=== PATIENT | female | born 1960 | race Caucasian/White ===

== ENCOUNTER 2017-02-16 14:16 | Emergency (ER) | payer MEDICAID ==
[~2017-02-16] VITALS: Ht 175.3 cm; Wt 64.9 kg
[2017-02-16 15:33] VITALS: BP 172/90
[2017-02-16] MEDS ORDERED: HYDROcodone-ACET 10/325MG TAB PO ONE (15:45)
== END 2017-02-16 16:03 | disposition home or self-care (01) ==
LOC: ER 14:16
DX: M25.551 Pain in right hip (principal); F17.210 Nicotine dependence, cigarettes, uncomplicated; F31.9 Bipolar disorder, unspecified; Z76.0 Encounter for issue of repeat prescription; Z96.641 Presence of right artificial hip joint

== ENCOUNTER 2018-01-26 15:18 | Inpatient (IN) | payer MEDICAID ==
[~2018-01-26] VITALS: Ht 175.3 cm; Wt 63.1 kg
[2018-01-26 16:22] LABS: Basophils # (auto) 0 uL; Basophils % (auto) 0.6 % (0.0-2.0); Eosinophils # (auto) 0.1 uL; Eosinophils % (auto) 1.6 % (0.0-7.0); Hematocrit 43.8 % (36.0-46.0); Hemoglobin 14.9 g/dL (12.2-16.2); Lymphocytes # (auto) 2.1 uL; Lymphocytes % (auto) 28.8 % (10.0-50.0); Mean Corpuscular Hemoglobin 33.2 pg (28.0-32.0); Mean Corpuscular Hgb Conc. 34.1 g/dL (32.0-36.0); Mean Corpuscular Volume 97.5 fL (80.0-100.0); Monocytes # (auto) 0.6 uL; Monocytes % (auto) 7.9 % (0.0-12.0); Neutrophils # (auto) 4.4 uL; Neutrophils % (auto) 61.1 % (37.0-80.0); Nucleated Red Blood Cells % 0.2 %; Platelet Count (auto) 317 10^3/uL (140-450); Red Blood Cells 4.49 10^6/uL (4.0-5.20); Red Cell Distribution Width 13.8 % (11.8-14.3); White Blood Cell 7.2 10^3/uL (4.4-10.8)
[2018-01-26] MEDS ORDERED: SODIUM CHLORIDE 0.9% 500 ML IVB ONE (16:27)
[2018-01-26] MEDS ORDERED: ONDANSETRON HCL 4 MG/2 ML VIAL IV ONE ×2 (16:30→20:15)
[2018-01-26] MEDS ORDERED: SODIUM CHLORIDE 0.9% 1,000 ML IV ONE (16:30)
[2018-01-26 16:34] LABS: Alanine Aminotransferase 14 U/L (13-56); Albumin 3.9 g/dL (3.4-5.0); Anion Gap 6 (5-15); Aspartate Aminotransferase 14 U/L (15-37); BUN/Creatinine Ratio 14.5; Blood Urea Nitrogen 11 mg/dL (7-18); Calcium 8.9 mg/dL (8.5-10.1); Carbon Dioxide 29 mmol/L (21-32); Chloride 102 mmol/L (98-107); GFR African American 101 mL/min; GFR Non-African American 83 mL/min; Glucose 104 mg/dL (74-106); Magnesium 2.1 mg/dL (1.6-2.6); Potassium 4.5 mmol/L (3.5-5.1); Sodium 137 mmol/L (136-145)
[2018-01-26 16:39] LABS: Alkaline Phosphatase 86 U/L (45-117); Bilirubin, Total 0.2 mg/dL (0.2-1.0); Total Protein 7.8 g/dL (6.4-8.2)
[2018-01-26] MEDS ORDERED: cloNIDine HCL 0.1 MG TAB ONE (17:14)
[2018-01-26] MEDS ORDERED: cloNIDine HCL 0.1 MG TAB PO ONE (17:15)
[2018-01-26 18:24] LABS: Urine Bacteria NONE SEEN /hpf (None Seen); Urine Blood Negative /uL (Negative); Urine Mucus FEW (None Seen); Urine Specific Gravity 1.027 (1.001-1.035); Urine WBC 3 /hpf (0 - 5)
[2018-01-26] MEDS ORDERED: MORPHINE SULFATE 4 MG/ML SYR/VIAL IV ONE (20:15)
[2018-01-26] MEDS ORDERED: ACETAMINOPHEN 500 MG TAB PO PRN (22:15)
[2018-01-26] MEDS: SODIUM CHLORIDE 0.9% 1,000 ML IV SCH (22:23)
[2018-01-26] MEDS: GABAPENTIN 300 MG CAP PO SCH (22:28)
[2018-01-26] MEDS ORDERED: cefTRIAXone 1GM/10ml IVPUSH 10 ML IV ONE (22:30)
[2018-01-26] MEDS: ONDANSETRON HCL 4 MG/2 ML VIAL IV PRN (22:49)
[2018-01-26 23:50] VITALS: BP 164/104
[2018-01-27] MEDS: TEMAZEPAM 15 MG CAP PO PRN (00:19)
[2018-01-27] MEDS: MORPHINE SULFATE 4 MG/ML SYR/VIAL IV PRN ×2 (00:19→08:36)
[2018-01-27] MEDS: SODIUM CHLORIDE 0.9% 1,000 ML IV SCH (00:48)
[2018-01-27] MEDS ORDERED: DIVA500T53 PO (01:20)
[2018-01-27] MEDS ORDERED: HYDR-531 PO (01:20)
[2018-01-27] MEDS ORDERED: HYDR-4683 PO (01:20)
[2018-01-27] MEDS ORDERED: GABA-339 PO (01:20)
[2018-01-27] MEDS ORDERED: MORP1TAB12 PO (01:20)
[2018-01-27] MEDS ORDERED: LISI-646 PO (01:20)
[2018-01-27 05:00] VITALS: BP 104/69
[2018-01-27 05:25] LABS: Basophils # (auto) 0 uL; Basophils % (auto) 0.6 % (0.0-2.0); Eosinophils # (auto) 0.2 uL; Eosinophils % (auto) 2.9 % (0.0-7.0); Hematocrit 40.7 % (36.0-46.0); Hemoglobin 14.1 g/dL (12.2-16.2); Lymphocytes # (auto) 3.5 uL; Lymphocytes % (auto) 53.5 % (10.0-50.0); Mean Corpuscular Hemoglobin 33.5 pg (28.0-32.0); Mean Corpuscular Hgb Conc. 34.5 g/dL (32.0-36.0); Monocytes # (auto) 0.5 uL; Monocytes % (auto) 7.2 % (0.0-12.0); Neutrophils # (auto) 2.3 uL; Neutrophils % (auto) 35.8 % (37.0-80.0); Nucleated Red Blood Cells % 0.3 %; Platelet Count (auto) 237 10^3/uL (140-450); Red Cell Distribution Width 13.6 % (11.8-14.3); White Blood Cell 6.5 10^3/uL (4.4-10.8)
[2018-01-27] MEDS: GABAPENTIN 300 MG CAP PO SCH ×3 (05:30→22:30)
[2018-01-27 05:44] LABS: Potassium 3.4 mmol/L (3.5-5.1)
[2018-01-27 05:57] LABS: BUN/Creatinine Ratio 12.7; Calcium 8.5 mg/dL (8.5-10.1)
[2018-01-27 09:00] VITALS: BP 123/86
[2018-01-27] MEDS ORDERED: cefTRIAXone 1GM/10ml IVPUSH 10 ML IV SCH (09:00)
[2018-01-27] MEDS ORDERED: POTASSIUM EFFERVESENT TAB 25 MEQ PO ONE (10:00)
[2018-01-27] MEDS ORDERED: HCTZ 25 MG TAB PO SCH (10:00)
[2018-01-27] MEDS: LISINOPRIL 20 MG TAB PO SCH (10:00)
[2018-01-27] MEDS: PANTOPRAZOLE 40 MG/10 ML VIAL IV SCH ×2 (11:24→22:30)
[2018-01-27] MEDS: SOD CHL 0.45% WITH 20MEQ KCL 1,000 ML IV SCH (11:25)
[2018-01-27] MEDS: ONDANSETRON HCL 4 MG/2 ML VIAL IV PRN ×2 (12:50→21:02)
[2018-01-27] MEDS: HYDROcodone-ACET 10/325MG TAB PO PRN ×4 (12:51→21:02)
[2018-01-27 13:00] VITALS: BP 153/99
[2018-01-27 14:05] LABS: Prothrombin Time 10.7 sec (9.27-12.13)
[2018-01-27 16:43] VITALS: BP 153/99
[2018-01-27 22:00] VITALS: BP 139/82
[2018-01-28] MEDS: SOD CHL 0.45% WITH 20MEQ KCL 1,000 ML IV SCH ×2 (00:27→13:51)
[2018-01-28] MEDS: MORPHINE SULFATE 4 MG/ML SYR/VIAL IV PRN ×4 (00:32→20:21)
[2018-01-28 05:00] VITALS: BP 108/77
[2018-01-28] MEDS: GABAPENTIN 300 MG CAP PO SCH ×3 (05:42→21:36)
[2018-01-28 07:57] LABS: Hematocrit 44.1 % (36.0-46.0); Hemoglobin 14.4 g/dL (12.2-16.2); Mean Corpuscular Hemoglobin 32.6 pg (28.0-32.0); Mean Corpuscular Hgb Conc. 32.8 g/dL (32.0-36.0); Mean Corpuscular Volume 99.5 fL (80.0-100.0); Platelet Count (auto) 209 10^3/uL (140-450); Red Blood Cells 4.43 10^6/uL (4.0-5.20); Red Cell Distribution Width 14.2 % (11.8-14.3); White Blood Cell 6.8 10^3/uL (4.4-10.8)
[2018-01-28 08:00] LABS: Band Neutrophils % (manual) 0; Basophils % (manual) 0 (0.0-2.0); Blast Cells 0; Metamyelocytes % 0; Myelocytes % 0; Promyelocytes % 0; Reactive Lymphocytes 0
[2018-01-28 08:17] LABS: Calcium 8.2 mg/dL (8.5-10.1); Chloride 108 mmol/L (98-107); Potassium 4.2 mmol/L (3.5-5.1); Sodium 141 mmol/L (136-145)
[2018-01-28 08:20] LABS: Alanine Aminotransferase 12 U/L (13-56); Albumin 3.5 g/dL (3.4-5.0); Anion Gap 9 (5-15); Aspartate Aminotransferase 13 U/L (15-37); BUN/Creatinine Ratio 7.7; Blood Urea Nitrogen 5 mg/dL (7-18); Carbon Dioxide 24 mmol/L (21-32); GFR African American 121 mL/min; GFR Non-African American 100 mL/min; Glucose 60 mg/dL (74-106); Magnesium 2.2 mg/dL (1.6-2.6)
[2018-01-28 08:24] LABS: Alkaline Phosphatase 65 U/L (45-117); Bilirubin, Direct 0.1 mg/dL (0-0.2); Bilirubin, Total 0.3 mg/dL (0.2-1.0); Total Protein 6.8 g/dL (6.4-8.2)
[2018-01-28] MEDS ORDERED: LIDOCAINE VISCOUS 2% 15ML UD ONE (08:26)
[2018-01-28] MEDS ORDERED: SODIUM CHLORIDE LOCK 10 ML ONE (08:26)
[2018-01-28] MEDS ORDERED: diphenhdrAMINE HCL 50 MG/1 ML VL ONE (08:27)
[2018-01-28 08:30] LABS: Eosinophils % (manual) 1 (0-7); Lymphocytes % (manual) 66 (10.0-50.0); Monocytes % (manual) 5 (0-12)
[2018-01-28 08:53] VITALS: BP 145/85
[2018-01-28] MEDS: MIDAZOLAM HCL 5 MG/ML-1ML VIAL ONE ×2 (09:10→09:13)
[2018-01-28] MEDS: fentaNYL CITRATE 100 MCG/2 ML VL ONE ×2 (09:10→09:13)
[2018-01-28] MEDS: PANTOPRAZOLE 40 MG TAB PO SCH ×2 (10:40→21:36)
[2018-01-28] MEDS: LISINOPRIL 20 MG TAB PO SCH (10:40)
[2018-01-28 11:01] LABS: INR 0.93 (0.9-1.15)
[2018-01-28 12:00] VITALS: BP 145/94
[2018-01-28] MEDS: HYDROcodone-ACET 10/325MG TAB PO PRN (12:17)
[2018-01-28] MEDS: ONDANSETRON HCL 4 MG/2 ML VIAL IV PRN ×2 (15:22→20:21)
[2018-01-28 16:57] VITALS: BP 149/92
[2018-01-28 21:45] VITALS: BP 154/96
[2018-01-28] MEDS: TEMAZEPAM 15 MG CAP PO PRN (22:00)
[2018-01-29] MEDS: ONDANSETRON HCL 4 MG/2 ML VIAL IV PRN ×2 (00:40→04:49)
[2018-01-29] MEDS: MORPHINE SULFATE 4 MG/ML SYR/VIAL IV PRN ×3 (00:40→09:11)
[2018-01-29] MEDS: SOD CHL 0.45% WITH 20MEQ KCL 1,000 ML IV SCH (01:51)
[2018-01-29 04:40] VITALS: BP 152/100
[2018-01-29 05:42] LABS: Basophils # (auto) 0 uL; Basophils % (auto) 0.5 % (0.0-2.0); Eosinophils # (auto) 0.2 uL; Eosinophils % (auto) 2.4 % (0.0-7.0); Hematocrit 41.6 % (36.0-46.0); Lymphocytes # (auto) 3.5 uL; Lymphocytes % (auto) 39.6 % (10.0-50.0); Mean Corpuscular Hemoglobin 32.9 pg (28.0-32.0); Mean Corpuscular Hgb Conc. 33.6 g/dL (32.0-36.0); Mean Corpuscular Volume 97.7 fL (80.0-100.0); Monocytes # (auto) 0.6 uL; Monocytes % (auto) 6.9 % (0.0-12.0); Neutrophils # (auto) 4.5 uL; Neutrophils % (auto) 50.6 % (37.0-80.0); Nucleated Red Blood Cells % 0.1 %; Platelet Count (auto) 277 10^3/uL (140-450); Red Blood Cells 4.26 10^6/uL (4.0-5.20); Red Cell Distribution Width 13.6 % (11.8-14.3); White Blood Cell 8.9 10^3/uL (4.4-10.8)
[2018-01-29 06:00] LABS: Potassium 3.8 mmol/L (3.5-5.1)
[2018-01-29 06:09] LABS: BUN/Creatinine Ratio 7.7; Calcium 8.7 mg/dL (8.5-10.1)
[2018-01-29] MEDS: GABAPENTIN 300 MG CAP PO SCH (06:27)
[2018-01-29 09:00] VITALS: BP 134/94
[2018-01-29] MEDS: PANTOPRAZOLE 40 MG TAB PO SCH (09:12)
[2018-01-29] MEDS: LISINOPRIL 20 MG TAB PO SCH (09:13)
== END 2018-01-29 11:20 | disposition home or self-care (01) | DRG 241 ==
LOC: ER 15:24 → OVERFLOW 15:25 → WEST WING 23:15
PROVIDERS: ADMIT Nurse Practitioner Family; ATTEND Internal Medicine
PROC: 0DB68ZX Excision of Stomach, Via Natural or Artificial Opening Endoscopic, Diagnostic (ICD-10-PCS; principal; 2018-01-28 09:06)
DX: K29.70 Gastritis, unspecified, without bleeding (principal); E87.6 Hypokalemia; F32.9 Major depressive disorder, single episode, unspecified; I10 Essential (primary) hypertension; N39.0 Urinary tract infection, site not specified; F17.210 Nicotine dependence, cigarettes, uncomplicated; Z80.3 Family history of malignant neoplasm of breast; Z85.038 Personal history of other malignant neoplasm of large intestine; Z96.649 Presence of unspecified artificial hip joint; G89.29 Other chronic pain; M54.5 Low back pain
CPT/HCPCS: 36415; 43239; 71045; 74176; 80048; 80053; 80076; 81001; 82150; 83690; 83735; 84484; 85007; 85025; 85027; 85610; 86850; 86900; 86901; 93005; 96374; 96375; A6257; C9113; J0696; J2250; J2405

== ENCOUNTER 2022-06-26 23:58 | Emergency (ER) | payer MEDICAID ==
[~2022-06-26] VITALS: Ht 172.7 cm; Wt 72.7 kg
[~2022-06-26 23:58] MED LIST: DIVA500T2 PO; GABA-339 PO; HYDR-4833 PO; HYDR-531 PO; LISI20TA28 PO; MORP1TAB12 PO
[2022-06-27] MEDS ORDERED: ONDANSETRON ODT 4 MG TAB PO ONE (00:15)
[2022-06-27] MEDS ORDERED: HYDROmorphone HCL 2 MG/ML VL/or syr IM ONE (00:15)
[2022-06-27 00:45] LABS: Basophils # (auto) 0.2 10 ^3/uL (0-0.2); Basophils % (auto) 1.9 % (0.0-2.0); Eosinophils # (auto) 0.1 10 ^3/uL (0-0.8); Eosinophils % (auto) 0.7 % (0.0-7.0); Hematocrit 48.3 % (36.0-46.0); Hemoglobin 16.6 g/dL (12.2-16.2); Lymphocytes # (auto) 1.9 10 ^3/uL (0.4-5.4); Lymphocytes % (auto) 18.6 % (10.0-50.0); Mean Corpuscular Hgb Conc. 34.4 g/dL (32.0-36.0); Mean Corpuscular Volume 92.9 fL (80.0-100.0); Monocytes # (auto) 0.4 10 ^3/uL (0-1.3); Monocytes % (auto) 3.9 % (0.0-12.0); Neutrophils # (auto) 7.4 10 ^3/uL (1.6-8.6); Neutrophils % (auto) 74.9 % (37.0-80.0); Nucleated Red Blood Cells % 0.1 %; Red Cell Distribution Width 13.2 % (11.8-14.3); White Blood Cell 9.9 10^3/uL (4.4-10.8)
[2022-06-27 01:03] LABS: Albumin 4.4 g/dL (3.4-5.0); BUN/Creatinine Ratio 10.8; Bilirubin, Total 0.5 mg/dL (0.2-1.0); CRP High Sensitivity 0.17 mg/dL (< 0.3); Calcium 9.5 mg/dL (8.5-10.1)
[2022-06-27 02:52] LABS: Urine Bacteria NONE SEEN /hpf (None Seen); Urine Blood Negative /uL (Negative); Urine Hyaline Cast FEW /lpf (0 - 2); Urine Mucus FEW (None Seen); Urine Specific Gravity 1.041 (1.001-1.035); Urine WBC 15 /hpf (0 - 5)
[2022-06-27 04:52] VITALS: BP 153/109
== END 2022-06-27 06:38 | disposition home or self-care (01) ==
LOC: ER 23:58
DX: R10.32 Left lower quadrant pain (principal); R73.9 Hyperglycemia, unspecified; F32.9 Major depressive disorder, single episode, unspecified; I10 Essential (primary) hypertension; F17.210 Nicotine dependence, cigarettes, uncomplicated; Z79.899 Other long term (current) drug therapy
CPT/HCPCS: 36415; 74176; 80053; 81001; 83880; 85025; 86141; 96372; 99285; J1170; Q0162

== ENCOUNTER 2022-10-31 11:31 | Emergency (ER) | payer MEDICAID ==
[~2022-10-31] VITALS: Ht 175.3 cm; Wt 66.5 kg
[~2022-10-31 11:31] MED LIST changes: -DIVA500T2 PO; +DIVA500T3 PO; -LISI20TA28 PO; +LISI20TA56 PO
[2022-10-31 12:24] LABS: Basophils # (auto) 0.1 10 ^3/uL (0-0.2); Basophils % (auto) 1.1 % (0.0-2.0); Eosinophils # (auto) 0.3 10 ^3/uL (0-0.8); Eosinophils % (auto) 3.1 % (0.0-7.0); Hematocrit 47.7 % (36.0-46.0); Lymphocytes # (auto) 1.3 10 ^3/uL (0.4-5.4); Lymphocytes % (auto) 15.6 % (10.0-50.0); Mean Corpuscular Hemoglobin 31.6 pg (28.0-32.0); Mean Corpuscular Hgb Conc. 33.5 g/dL (32.0-36.0); Mean Corpuscular Volume 94.6 fL (80.0-100.0); Monocytes # (auto) 0.6 10 ^3/uL (0-1.3); Monocytes % (auto) 6.7 % (0.0-12.0); Neutrophils # (auto) 6.3 10 ^3/uL (1.6-8.6); Neutrophils % (auto) 73.5 % (37.0-80.0); Red Blood Cells 5.04 10^6/uL (4.0-5.20); Red Cell Distribution Width 13.9 % (11.8-14.3); White Blood Cell 8.5 10^3/uL (4.4-10.8)
[2022-10-31 12:58] LABS: Albumin 4.1 g/dL (3.4-5.0); Calcium 9.5 mg/dL (8.5-10.1); Magnesium 2.4 mg/dL (1.6-2.6); Potassium 4.3 mmol/L (3.5-5.1)
[2022-10-31 13:04] LABS: Bilirubin, Total 0.2 mg/dL (0.2-1.0); Total Protein 7.6 g/dL (6.4-8.2)
[2022-10-31 14:47] LABS: Urine Bacteria NONE SEEN /hpf (None Seen); Urine Blood Negative /uL (Negative); Urine Specific Gravity 1.028 (1.001-1.035); Urine WBC 1 /hpf (0 - 5)
[2022-10-31 17:37] VITALS: BP 142/67
== END 2022-10-31 17:44 | disposition home or self-care (01) ==
LOC: ER 11:31
DX: R10.12 Left upper quadrant pain (principal); F32.9 Major depressive disorder, single episode, unspecified; I10 Essential (primary) hypertension; F17.210 Nicotine dependence, cigarettes, uncomplicated; F15.90 Other stimulant use, unspecified, uncomplicated; Z79.1 Long term (current) use of non-steroidal anti-inflammatories (NSAID); Z98.890 Other specified postprocedural states; Z79.899 Other long term (current) drug therapy
CPT/HCPCS: 36415; 74176; 80053; 81001; 82150; 83690; 83735; 84484; 85025; 93005

== ENCOUNTER 2023-01-19 12:33 | Emergency (ER) | payer MEDICAID ==
[~2023-01-19] VITALS: Ht 175.3 cm; Wt 64.0 kg
[2023-01-19 13:33] LABS: Eosinophils # (auto) 0 10 ^3/uL (0-0.8); Eosinophils % (auto) 0.1 % (0.0-7.0); Hemoglobin 15.9 g/dL (12.2-16.2); Mean Corpuscular Volume 94.2 fL (80.0-100.0); Monocytes # (auto) 0.4 10 ^3/uL (0-1.3); Nucleated Red Blood Cells % 0.1 %
[2023-01-19 13:35] LABS: Basophils # (auto) 0.1 10 ^3/uL (0-0.2); Basophils % (auto) 0.6 % (0.0-2.0); Hematocrit 46.6 % (36.0-46.0); Lymphocytes # (auto) 1.5 10 ^3/uL (0.4-5.4); Lymphocytes % (auto) 15.7 % (10.0-50.0); Mean Corpuscular Hemoglobin 32.1 pg (28.0-32.0); Monocytes % (auto) 4.1 % (0.0-12.0); Neutrophils # (auto) 7.8 10 ^3/uL (1.6-8.6); Neutrophils % (auto) 79.5 % (37.0-80.0); Red Blood Cells 4.95 10^6/uL (4.0-5.20); Red Cell Distribution Width 13.5 % (11.8-14.3); White Blood Cell 9.8 10^3/uL (4.4-10.8)
[2023-01-19 13:42] LABS: Alanine Aminotransferase 19 U/L (7-40); Albumin 5.4 g/dL (3.2-4.8); Alkaline Phosphatase 117 U/L (46-116); Anion Gap 19 (5-15); Aspartate Aminotransferase 26 U/L (13-40); Bilirubin, Total 0.7 mg/dL (0.2-1.0); Blood Urea Nitrogen 33 mg/dL (9-23); Calcium 10.5 mg/dL (8.7-10.4); Carbon Dioxide 18 mmol/L (20-30); Chloride 103 mmol/L (98-107); Glucose 122 mg/dL (74-106); Lipase 39 U/L (12-53); Potassium 4.2 mmol/L (3.5-5.1); Sodium 140 mmol/L (136-145); Total Protein 8.2 g/dL (5.7-8.2)
[2023-01-19 13:44] LABS: INR 1.01 (0.9-1.15); Partial Thromboplastin Time 29.9 SEC (24.5-34.5); Prothrombin Time 10.6 sec (9.3-11.8)
[2023-01-19] MEDS ORDERED: ZOFR4T PO (13:58)
[2023-01-19] MEDS ORDERED: PANT40TA2 PO (13:58)
[2023-01-19 14:15] VITALS: BP 133/98; PULSE 102; RESP 18; TEMP 98.5; O2SAT 100
== END 2023-01-19 14:18 | disposition home or self-care (01) ==
LOC: ER 12:33
DX: F10.188 Alcohol abuse with other alcohol-induced disorder (principal); G89.29 Other chronic pain; R10.84 Generalized abdominal pain; R11.2 Nausea with vomiting, unspecified; I10 Essential (primary) hypertension; F17.210 Nicotine dependence, cigarettes, uncomplicated
CPT/HCPCS: 36415; 76705; 80053; 83690; 85025; 85610; 85730; 93005

== ENCOUNTER 2023-12-07 09:14 | Inpatient (IN) | payer MEDICAID ==
[~2023-12-07] VITALS: Ht 175.3 cm; Wt 64.0 kg
[~2023-12-07 09:14] MED LIST changes: +BUPR-239 PO; +CYCL-839 PO; +DIVA-91 PO; -DIVA500T3 PO; +DULO20CA PO; +HYDR-4795 PO; +LISI-285 PO; +OMEP1CAP70 PO; +PANT40TA2 PO; +SIMV20TA20 PO; +ZOFR4T PO
[2023-12-07 11:19] LABS: Basophils # (auto) 0.1 10 ^3/uL (0-0.2); Basophils % (auto) 0.4 % (0.0-2.0); Eosinophils # (auto) 0.1 10 ^3/uL (0-0.8); Eosinophils % (auto) 0.8 % (0.0-7.0); Hematocrit 50.3 % (36.0-46.0); Hemoglobin 16.6 g/dL (12.2-16.2); Lymphocytes # (auto) 1.4 10 ^3/uL (0.4-5.4); Lymphocytes % (auto) 11.3 % (10.0-50.0); Mean Corpuscular Volume 97.1 fL (80.0-100.0); Monocytes # (auto) 0.4 10 ^3/uL (0-1.3); Monocytes % (auto) 3.2 % (0.0-12.0); Neutrophils # (auto) 10.4 10 ^3/uL (1.6-8.6); Neutrophils % (auto) 84.3 % (37.0-80.0); Nucleated Red Blood Cells % 0.1 %; Platelet Count (auto) 361 10^3/uL (140-450); Red Blood Cells 5.19 10^6/uL (4.0-5.20); Red Cell Distribution Width 13.1 % (11.8-14.3); White Blood Cell 12.4 10^3/uL (4.4-10.8)
[2023-12-07 11:35] LABS: Alanine Aminotransferase 22 U/L (7-40); Alkaline Phosphatase 95 U/L (46-116); Anion Gap 0 (5-15); Aspartate Aminotransferase 26 U/L (13-40); BUN/Creatinine Ratio 19.6 (10.0-20.0); Blood Urea Nitrogen 18 mg/dL (9-23); Calcium 10.2 mg/dL (8.7-10.4); Carbon Dioxide 27 mmol/L (20-30); Chloride 109 mmol/L (98-107); Glucose 103 mg/dL (74-106); Potassium 4.4 mmol/L (3.5-5.1); Sodium 136 mmol/L (136-145)
[2023-12-07 11:36] LABS: Albumin 4.7 g/dL (3.2-4.8); Bilirubin, Total 0.7 mg/dL (0.2-1.0)
[2023-12-07] MEDS: IOHEXOL 350 MG/ML 100ML IJ ONE (12:02)
[2023-12-07 12:07] LABS: Total Protein 7.5 g/dL (5.7-8.2)
[2023-12-07] MEDS ORDERED: DOCUSATE SOD 100 MG CAP PO PRN (14:45)
[2023-12-07] MEDS ORDERED: hydrALAZINE HCL 20 MG/ML VL IV PRN (14:45)
[2023-12-07] MEDS ORDERED: ACETAMINOPHEN 325 MG TAB PO PRN (14:45)
[2023-12-07] MEDS ORDERED: ONDANSETRON HCL 4 MG/2 ML VIAL IV PRN (14:45)
[2023-12-07] MEDS ORDERED: NITROGLYCERIN 0.4 MG SL TAB SL PRN (15:30)
[2023-12-07] MEDS ORDERED: MORPHINE SULFATE INJ 2 MG/ml SYRG IV PRN (15:30)
[2023-12-07] MEDS: HYDROcodone-ACET 5/325MG TAB PO PRN (17:31)
[2023-12-07 21:39] VITALS: BP 166/102; PULSE 92; RESP 20; TEMP 98; O2SAT 98
[2023-12-07] MEDS: SODIUM CHLOR 0.9% PF (SALINE LOCK) 10ML VIAL/SYR IV SCH (22:00)
[2023-12-08] VITALS (8 sets, daily range): BP systolic 114–153; BP diastolic 72–89; PULSE 69–112; RESP 17–20; TEMP 98–98.5; O2SAT 92–99
[2023-12-08] MEDS: HYDROcodone-ACET 7.5/325MG TAB PO PRN ×2 (03:04→13:46)
[2023-12-08 06:30] LABS: Basophils # (auto) 0.1 10 ^3/uL (0-0.2); Basophils % (auto) 1.2 % (0.0-2.0); Eosinophils # (auto) 0.2 10 ^3/uL (0-0.8); Eosinophils % (auto) 2.2 % (0.0-7.0); Hematocrit 46.3 % (36.0-46.0); Hemoglobin 15.6 g/dL (12.2-16.2); Lymphocytes # (auto) 2.2 10 ^3/uL (0.4-5.4); Mean Corpuscular Hgb Conc. 33.7 g/dL (32.0-36.0); Monocytes # (auto) 0.7 10 ^3/uL (0-1.3); Monocytes % (auto) 8.3 % (0.0-12.0); Neutrophils # (auto) 5.6 10 ^3/uL (1.6-8.6); Neutrophils % (auto) 63.3 % (37.0-80.0); Platelet Count (auto) 341 10^3/uL (140-450); Red Blood Cells 4.88 10^6/uL (4.0-5.20); Red Cell Distribution Width 12.9 % (11.8-14.3); White Blood Cell 8.8 10^3/uL (4.4-10.8)
[2023-12-08] MEDS: PANTOPRAZOLE 40 MG/10 ML VIAL INJ IV SCH (09:47)
[2023-12-08 10:51] LABS: Alanine Aminotransferase 19 U/L (7-40); Albumin 4.4 g/dL (3.2-4.8); Alkaline Phosphatase 87 U/L (46-116); Anion Gap 4 (5-15); Aspartate Aminotransferase 26 U/L (13-40); BUN/Creatinine Ratio 16.3 (10.0-20.0); Blood Urea Nitrogen 16 mg/dL (9-23); Calcium 9.8 mg/dL (8.7-10.4); Carbon Dioxide 24 mmol/L (20-30); Chloride 107 mmol/L (98-107); Glucose 97 mg/dL (74-106); Sodium 135 mmol/L (136-145)
[2023-12-08 10:52] LABS: Bilirubin, Total 0.9 mg/dL (0.2-1.0); Total Protein 7.2 g/dL (5.7-8.2)
[2023-12-08] MEDS: PANTOPRAZOLE 40 MG TAB PO ONE (11:17)
[2023-12-08] MEDS: LISINOPRIL 20 MG TAB PO SCH (11:17)
[2023-12-08] MEDS: GABAPENTIN 300 MG CAP PO SCH (11:17)
[2023-12-08] MEDS: DULoxetine HCL 30 MG CAP PO SCH (13:46)
[2023-12-08] MEDS ORDERED: MORPHINE SULF 15mg ER tab PO SCH ×2 (15:45→22:00)
[2023-12-08] MEDS: MORPHINE SULF 15mg ER tab PO ONE (17:54)
[2023-12-08] MEDS: NICOTINE 21MG/24 HR TOPICAL PATCH TD ONE (17:58)
[2023-12-08] MEDS: buPROPion HCL 75 MG TAB PO SCH (18:52)
[2023-12-08 19:34] LABS: Urine Bacteria FEW /hpf (None Seen); Urine Blood Negative /uL (Negative); Urine Clarity Clear (Clear); Urine Color Yellow (Yellow); Urine Protein, UAD TRACE (Negative); Urine Specific Gravity 1.029 (1.001-1.035); Urine Urobilinogen Normal (Negative); Urine WBC 2 /hpf (0 - 5); Urine pH 5.5 (5.0-9.0)
[2023-12-08 19:43] LABS: Amphetamine Screen, Urine Neg (NEGATIVE)
[2023-12-08 19:44] LABS: Barbiturate Scree,Urine Neg (NEGATIVE); Benzodiazephine Screen, Urine Neg (NEGATIVE); Cannabinoid Screen, Urine Pos (NEGATIVE); Cocaine Screen, Urine Neg (NEGATIVE); Opiate Scree,Urine Pos (NEGATIVE); Phencyclidine Screen, Urine Neg (NEGATIVE)
[2023-12-08] MEDS: MORPHINE SULF 15mg ER tab PO SCH (21:32)
[2023-12-09 05:00] VITALS: BP 111/72; PULSE 80; RESP 19; TEMP 98.3; O2SAT 96
[2023-12-09] MEDS: PANTOPRAZOLE 40 MG TAB PO SCH (06:53)
[2023-12-09 09:00] VITALS: BP 106/78; PULSE 80; RESP 18; TEMP 97.8; O2SAT 88
[2023-12-09] MEDS: NICOTINE 21MG/24 HR TOPICAL PATCH TD SCH (09:27)
[2023-12-09 11:34] LABS: Basophils # (auto) 0.1 10 ^3/uL (0-0.2); Basophils % (auto) 1.1 % (0.0-2.0); Eosinophils # (auto) 0.1 10 ^3/uL (0-0.8); Eosinophils % (auto) 2.6 % (0.0-7.0); Hematocrit 44.4 % (36.0-46.0); Lymphocytes # (auto) 1.6 10 ^3/uL (0.4-5.4); Lymphocytes % (auto) 29.5 % (10.0-50.0); Mean Corpuscular Hemoglobin 32.3 pg (28.0-32.0); Mean Corpuscular Hgb Conc. 33.8 g/dL (32.0-36.0); Mean Corpuscular Volume 95.6 fL (80.0-100.0); Monocytes # (auto) 0.5 10 ^3/uL (0-1.3); Monocytes % (auto) 8.8 % (0.0-12.0); Neutrophils # (auto) 3.2 10 ^3/uL (1.6-8.6); Nucleated Red Blood Cells % 0.1 %; Platelet Count (auto) 318 10^3/uL (140-450); Red Blood Cells 4.64 10^6/uL (4.0-5.20); White Blood Cell 5.4 10^3/uL (4.4-10.8)
[2023-12-09 11:59] LABS: Chloride 108 mmol/L (98-107); Sodium 134 mmol/L (136-145)
[2023-12-09 12:00] LABS: Anion Gap 6 (5-15); Calcium 10.1 mg/dL (8.7-10.4); Carbon Dioxide 20 mmol/L (20-30)
[2023-12-09 12:05] LABS: Glucose 113 mg/dL (74-106)
[2023-12-09 12:06] LABS: BUN/Creatinine Ratio 12.9 (10.0-20.0); Blood Urea Nitrogen 12 mg/dL (9-23)
[2023-12-09 13:00] VITALS: BP_SYST 100; BP_SYST 104; BP_SYST 109; BP_DIAS 72; BP_DIAS 74; BP_DIAS 84; PULSE 101; PULSE 71; PULSE 77; RESP 20; TEMP 98.6; O2SAT 96; O2SAT 98; O2SAT 99
[2023-12-09 13:33] VITALS: BP 100/74; PULSE 71; RESP 20; TEMP 98.6; O2SAT 96
== END 2023-12-09 16:14 | disposition home or self-care (01) | DRG 249 ==
LOC: ER 09:14 → TELE 15:20 → TELE-WESTW 21:31 → WEST WING 12-08 19:49
PROVIDERS: ADMIT Internal Medicine; ATTEND Internal Medicine
DX: K52.9 Noninfective gastroenteritis and colitis, unspecified (principal); G90.8 Other disorders of autonomic nervous system; T40.2X1A Poisoning by other opioids, accidental (unintentional), initial encounter; D72.829 Elevated white blood cell count, unspecified; E04.2 Nontoxic multinodular goiter; I10 Essential (primary) hypertension; F17.210 Nicotine dependence, cigarettes, uncomplicated; F12.10 Cannabis abuse, uncomplicated; K21.9 Gastro-esophageal reflux disease without esophagitis; G62.9 Polyneuropathy, unspecified; Z80.3 Family history of malignant neoplasm of breast; Z80.0 Family history of malignant neoplasm of digestive organs; Z79.899 Other long term (current) drug therapy; Y92.89 Other specified places as the place of occurrence of the external cause
CPT/HCPCS: 36415; 70450; 70496; 74176; 80048; 80053; 80307; 81001; 82607; 84439; 84443; 84484; 85025; 87086; 93005; 93306; 96360; 97116; 97163; 97530; G0378

== ENCOUNTER → 2024-04-11 | Outpatient (CLI) | payer MEDICAID ==
[~2024-04-11] VITALS: Ht 175.3 cm; Wt 65.8 kg
[~2024-04-11] MED LIST changes: -DIVA-91 PO; -HYDR-4833 PO; -HYDR-531 PO; -LISI20TA56 PO; -PANT40TA2 PO; +REGADENOSON 0.4 MG/5 ML SYRG IV ONE; -ZOFR4T PO
[2024-04-11] MEDS: REGADENOSON 0.4 MG/5 ML SYRG IV ONE (12:21)
--- NOTE | 2024-04-11 15:29 | DVHSR ---
APPROVED REPORT Exam: Nuclear Stress Test BMI: 0 Stress Test Details HR Max Heart Rate (APMHR): 157.921034 bpm Target HR (85% APMHR): 133.686541 bpm BP ECG Stress ECG Conclusion Resting ECG shows normal sinus rhythm. At peak stress level no dynamic EKG changes was noted to sugg est ischemia. Resting images shows near homogeneous uptake of radioactive tracer throughout the myocardium without evidence of myocardial infarction. Stress images shows normal uptake of radioactive tracer throughout the myocardium without evidence of myocardial ischemia. Well-preserved left ventricular systolic function at 80%. Impression: Negative stress test for ischemia, low risk study NM EXAM: Myocardial Perfusion REST/STRESS Imaging Protocol: Rest Tc-99m/Stress Tc-99m 1 day Resting Data Rest SPECT myocardial perfusion imaging was performed in supine position 60 minutes following the int ravenous injection of 14.3 mCi of Tc-99m Sestamibi. Time of rest injection: 1105 Time of rest imagin Administration Route: IV Administration Site: Right Hand Pharmacologic Stress Pharmacologic stress test was performed by injecting Regadenoson 0.4 mg IV push followed by the intra venous injection of 31.4 mCi of Tc-99m Sestamibi. Time of stress injection: 1215 Time of stress imagin Administration Route: IV Administration Site: Right Hand Gated Stress SPECT was performed 60 minutes after stress injection. The images were gated to evaluate regional wall motion and calculate left ventricular ejection fracti on. Stress only was performed in the Supine position. Nuclear Conclusion ECG Findings: negative for ischemia Clinical Findings: negative for ischemia Nuclear Findings: negative for ischemia Exercise Capacity: not assessed Left Ventricular Function: normal Risk Study: low Resting ECG shows normal sinus rhythm. At peak stress level no dynamic EKG changes was noted to sugg est ischemia. Resting images shows near homogeneous uptake of radioactive tracer throughout the myocardium without evidence of myocardial infarction. Stress images shows normal uptake of radioactive tracer throughout the myocardium without evidence of myocardial ischemia. Well-preserved left ventricular systolic function at 80%. Impression: Negative stress test for ischemia, low risk study
== END | disposition home or self-care (01) ==
LOC: XYW 10:48
PROVIDERS: ATTEND Internal Medicine
DX: R07.9 Chest pain, unspecified (principal)
CPT/HCPCS: 78452; 93017; A9500; J2785

== ENCOUNTER → 2024-06-20 | Outpatient (CLI) | payer MEDICAID ==
[~2024-06-20] MED LIST changes: -REGADENOSON 0.4 MG/5 ML SYRG IV ONE
[2024-06-20 11:38] LABS: Basophils # (auto) 0.1 10 ^3/uL (0-0.2); Eosinophils # (auto) 0.3 10 ^3/uL (0-0.8); Eosinophils % (auto) 3.2 % (0.0-7.0); Hematocrit 45.2 % (36.0-46.0); Hemoglobin 15.3 g/dL (12.2-16.2); Lymphocytes % (auto) 24.1 % (10.0-50.0); Mean Corpuscular Hemoglobin 32.6 pg (28.0-32.0); Mean Corpuscular Hgb Conc. 33.8 g/dL (32.0-36.0); Mean Corpuscular Volume 96.5 fL (80.0-100.0); Monocytes # (auto) 0.4 10 ^3/uL (0-1.3); Monocytes % (auto) 5.4 % (0.0-12.0); Neutrophils # (auto) 5.5 10 ^3/uL (1.6-8.6); Neutrophils % (auto) 66.3 % (37.0-80.0); Platelet Count (auto) 372 10^3/uL (140-450); Red Blood Cells 4.69 10^6/uL (4.0-5.20); Red Cell Distribution Width 13.6 % (11.8-14.3); White Blood Cell 8.3 10^3/uL (4.4-10.8)
[2024-06-20 12:05] LABS: Free T3 3.46 pg/mL (2.3-4.2); Free T4 (Free Thyroxine) 1.1 ng/dL (0.89-1.76)
[2024-06-20 12:07] LABS: Alanine Aminotransferase 19 U/L (7-40); Alkaline Phosphatase 109 U/L (46-116); Anion Gap 8 (5-15); Aspartate Aminotransferase 22 U/L (13-40); BUN/Creatinine Ratio 9.8 (10.0-20.0); Blood Urea Nitrogen 10 mg/dL (9-23); Calcium 10.3 mg/dL (8.7-10.4); Carbon Dioxide 25 mmol/L (20-31); Glucose 98 mg/dL (74-106); Potassium 4.3 mmol/L (3.5-5.1); Sodium 141 mmol/L (136-145); Total Protein 7.9 g/dL (5.7-8.2); Triglycerides 127 mg/dL (< 150)
[2024-06-20 12:08] LABS: Bilirubin, Total 0.6 mg/dL (0.2-1.0)
[2024-06-20 12:09] LABS: Albumin 5.1 g/dL (3.2-4.8); Chloride 108 mmol/L (98-107); Cholesterol 241 mg/dL (< 200); HDL Cholesterol 65 mg/dL (40-59); LDL Cholesterol 165 mg/dL (< 100)
== END | disposition home or self-care (01) ==
LOC: LAB 11:07
PROVIDERS: ATTEND Internal Medicine
DX: I10 Essential (primary) hypertension (principal); I73.9 Peripheral vascular disease, unspecified; R07.9 Chest pain, unspecified
CPT/HCPCS: 36415; 80053; 80061; 84439; 84443; 84481; 85025

== ENCOUNTER → 2024-06-21 | Outpatient (CLI) | payer MEDICAID | END | disposition home or self-care (01) | LOC: RT 10:55 | PROVIDERS: ATTEND Internal Medicine Pulmonary Disease | DX: R06.00 Dyspnea, unspecified (principal); R05.9 Cough, unspecified | CPT/HCPCS: 94060; 94618; 94727; 94729 ==

== ENCOUNTER 2025-04-01 04:47 | Emergency (ER) | payer MEDICAID ==
[~2025-04-01] VITALS: Ht 167.6 cm; Wt 66.4 kg
[2025-04-01 04:50] VITALS: BP 179/116; PULSE 102; RESP 20; TEMP 98.3; O2SAT 95
--- NOTE | 2025-04-01 05:09 | ED.PDOC ---
History of Present Illness HPI Comments Pt presents stating she tested positive for staff in her nare and was instructed she needed to receive IV antibiotics. Denies fever, chills, nausea, vomiting, chest pain, shortness breath, difficulty breathing, or pain Chief Complaint: Abnormal LAB's Time Seen by MD: 04:57 Primary Care Provider: unknown Reviewed Notes: Nurses Notes, Medications, Allergies Allergies: Coded Allergies: Amoxicillin (Verified Allergy, Unknown, 04/01/25) Penicillins (Verified Allergy, Unknown, 04/01/25) Home Meds Reported Medications Lisinopril & Hydrochlorothiazi (Lisinopril/Hydrochlorothi) 1 Tab Tab, 1 TAB PO BID for 30 Days, #60 5 Refills [20/12.5 mg] 12/09/23 Omeprazole (Omeprazole Dr) 20 Mg Cap, 1 CAP PO DAILY for 14 Days, #14 12/09/23 Bupropion Hcl (Bupropion Hcl Sr) 200 Mg Tab, 150 MG PO BID for 30 Days, #60 12/09/23 Simvastatin (Simvastatin) 20 Mg Tab, 1 TAB PO QPM for 30 Days, #30 12/09/23 Cyclobenzaprine Hcl (Cyclobenzaprine Hcl) 10 Mg Tab, 1 TAB PO Q8HR for 30 Days, #90 12/09/23 Duloxetine Hcl (Cymbalta) 20 Mg Cap, 30 MG PO DAILY for 30 Days, #30 12/09/23 Hydrocodone-Acetaminophen (Hydrocodone Bitartrate/AC 7.5-325 mg) 1 Tab Tab, 1 TAB PO Q8HR PRN for PAIN SCALE 1 THRU 6 for 30 Days, #90 12/08/23 Morphine Sulfate (Morphine Sulfate Cr) 15 Mg Tab, 1 TAB PO Q12HR PRN for PAIN SCALE 7 THRU 10 for 30 Days, #60 12/08/23 Gabapentin (Gabapentin) 600 Mg Tab, 1 TAB PO Q8HR for 30 Days, #90 01/27/18 Information Source: Patient Mode of Arrival: Ambulatory Past Medical History PAST MEDICAL HISTORY: Depression, HTN [employer] History: No Pertinent [employer] History Family History Family History: No family hx of HTN Social History Smoker: Cigarettes, Greater Than 1 Pack/Day Alcohol: Occasionally Drugs: Marijuana Lives In: Home All Other Systems: Reviewed and Negative (See HPI) Physical Exam General Appearance: No Apparent Distress, Normal HEENT: Normal ENT Inspection, Pharynx Normal, TMs Normal Neck: Full Range of Motion, Non-Tender Respiratory: Lungs Clear, No Respiratory Distress, Normal Breath Sounds Cardiovascular: No Edema, No JVD, No Murmur, No Gallop, Normal Peripheral Pulses, Regular Rate/Rhythm Breast Exam: Deferred Gastrointestinal: Non Tender, Soft Genitalia: Deferred Pelvic: Deferred Rectal: Deferred Extremities: Normal capillary refill, Normal range of motion Musculoskeletal : Apperance: Normal Neurologic: Alert, No Motor Deficits, Normal Affect, Normal Mood, No Sensory Deficits Cerebellar Function: Normal Reflexes: NOT DONE Skin: Dry, Normal Color, Warm Lymphatic: No Adenopathy Was a procedure done? Was a procedure done?: No Differential Dx Considerations may include: Sinusitis X-Ray, Labs, Meds, VS Vital Signs Date Time Temp Pulse Resp B/P (MAP) Pulse Ox O2 Delivery O2 Flow Rate FiO2 04/01/25 04:50 98.3 102 20 179/116 95 98.3 Time of 1ST Reevaluation: 04:47 Reevaluation 1ST: Unchanged Time of 2ND Reevaluation: 05:05 Reevaluation 2ND: Improved Patient Education/Counseling: Diagnosis, Treatment, Need For Follow Up Family Education/Counseling: No Family Present SEPSIS Sepsis Screen Date sepsis recognized/suspect: Apr 01, 2025 Time Sepsis recognized/suspect: 0453 Recent Procedure: No On Antibiotic Therapy: No Respiratory Rate >20: No Heart Rate >90: Yes Temp<36 C (96.8 F) or >38.3 C: No SBP <90 or MAP <65 mmHG: No New Acute Mental Status Change: No Is the patient on CPAP, BIPAP,: No Vital Signs Date Time Temp Pulse Resp B/P (MAP) Pulse Ox O2 Delivery O2 Flow Rate FiO2 04/01/25 04:50 98.3 102 20 179/116 95 98.3 Departure 1 Departure Time of Disposition: 05:17 Impression: Primary Impression: Infection of nose Disposition: 01 HOME / SELF CARE / HOMELESS Condition: Stable Discharged With: Self Critical Care Note Critical Care Time?: No Stability Stability form required: JIMY Welch Apr 01, 2025 05:09
[2025-04-01] MEDS ORDERED: DOXY100C4 PO (05:19)
== END 2025-04-01 05:32 | disposition home or self-care (01) ==
LOC: ER 04:47
DX: J34.0 Abscess, furuncle and carbuncle of nose (principal); I10 Essential (primary) hypertension; F17.210 Nicotine dependence, cigarettes, uncomplicated; F32.A Depression, unspecified; Z79.899 Other long term (current) drug therapy; Z88.0 Allergy status to penicillin